=== PATIENT | male | born 2000 | race Caucasian/White ===

== ENCOUNTER 2018-07-27 11:56 | Emergency (ER) | payer BC ==
--- NOTE | 2018-07-27 13:13 | UC ---
Throat Pain/Nasal Duke HPI - HPI Summary HPI Summary: Patient c/o sore throat, body aches, chills fever, was exposed to strep, is wearing holter monitor due to new Dx of afib related to use of energy drinks and workout enhancement meds. - History of Current Complaint Stated Complaint: SORE THROAT, HEADACHE, STREP EXPOSURE Time Seen by Provider: 07/27/18 13:11 Hx Obtained From: Patient Onset/Duration: Sudden Onset, Lasting Days Severity: Moderate Associated Signs & Symptoms: Positive: Dysphagia, Sinus Discomfort - Allergies/Home Medications Allergies/Adverse Reactions: Allergies Allergy/AdvReac Type Severity Reaction Status Date / Time No Known Allergies Allergy Verified 07/27/18 13:05 PMH/Surg Hx/FS Hx/Imm Hx Previously Healthy: Yes - Family History Known Family History: Positive: Cardiac Disease Review of Systems All Other Systems Reviewed And Are Negative: Yes Constitutional: Positive: Fever, Chills, Fatigue Skin: Positive: Negative Eyes: Positive: Negative ENT: Positive: Sore Throat, Ear Ache, Nasal Discharge Respiratory: Positive: Shortness Of Breath, Cough Cardiovascular: Positive: Negative Gastrointestinal: Positive: Negative Genitourinary: Positive: Negative Motor: Positive: Negative Neurovascular: Positive: Negative Musculoskeletal: Positive: Negative Neurological: Positive: Negative Psychological: Positive: Negative Is Patient Immunocompromised?: No Physical Exam Triage Information Reviewed: Yes Appearance: Well-Nourished, Ill-Appearing, Pain Distress Vital Signs Reviewed: Yes Eye Exam: Normal ENT: Positive: Pharyngeal erythema, TM bulging, Sinus tenderness Dental Exam: Normal Neck exam: Normal Neck: Positive: Supple, Nontender, No Lymphadenopathy Respiratory Exam: Normal Respiratory: Positive: Chest non-tender, Lungs clear, Normal breath sounds Cardiovascular: Positive: No Murmur, Pulses Normal, Other: - heart rate irreg Abdominal Exam: Normal Abdomen Description: Positive: Nontender, No Organomegaly Bowel Sounds: Positive: Present Musculoskeletal Exam: Normal Neurological Exam: Normal Psychological Exam: Normal Skin Exam: Normal Throat Pain/Nasal Course/Dx - Course Course Of Treatment: hx obtained, exam performed, meds reviewed, rapid strep and flu obtained, treated for strep phaynigitis based on clinical presentation and exposure - Differential Dx/Diagnosis Differential Diagnosis/HQI/PQRI: Influenza, Laryngitis, Otitis Media, Pharyngitis, Sinusitis, URI Provider Diagnosis: Pharyngitis Discharge - Sign-Out/Discharge Documenting (check all that apply): Patient Departure All imaging exams completed and their final reports reviewed: No Studies - Discharge Plan Condition: Stable Disposition: HOME Prescriptions: Amoxicillin PO (*) [Amoxicillin 500 MG CAP*] 500 mg PO Q12H #20 cap Patient Education Materials: Pharyngitis (ED) Referrals: No Primary Care Phys,NOPCP [Primary Care Provider] - Additional Instructions: your flu swab was negative based on your exposure and presentation I am going to treat you for strep. take the medication as prescribed, follow up as necessary - Billing Disposition and Condition Condition: STABLE Disposition: Home - Attestation Statements Provider Attestation: I was available for consult. This patient was seen by the JAYRO. The patient was not presented to, seen by, or examined by me. EK
[2018-07-27 13:16] VITALS: BP 113/67
[2018-07-27] MEDS ORDERED: Ibuprofen TAB* 600 MG PO ONE (13:20)
[2018-07-29 08:42] LABS: Influenza A Molecular NEGATIVE (Negative); Influenza B Molecular NEGATIVE (Negative)
== END 2018-07-27 14:08 | disposition home or self-care (01) ==
LOC: UCCORT 11:56
DX: J02.9 Acute pharyngitis, unspecified (principal)
CPT/HCPCS: 87651; 99202; A9270-GY; G0463

== ENCOUNTER 2018-12-23 12:15 | Emergency (ER) | payer BC ==
[2018-12-23 12:37] VITALS: BP 121/59
--- NOTE | 2018-12-23 12:55 | UC ---
Cardiac HPI - HPI Summary HPI Summary: 18yo male c/o left sided chest pain. Sudden onset yesterday at rest. Worse with activity. Not worse with palpation or deep breaths. 7/10 at worst. No pain at rest. No radiation. Hx spontaneous pneumothorax in past. No fever. No SOB at rest. No nausea. No URI Sx. - History of Current Complaint Chief Complaint: UCChestPain Stated Complaint: LEFT SIDE/BACK PAIN Time Seen by Provider: 12/23/18 12:31 Pain Intensity: 0 - Allergy/Home Medications Allergies/Adverse Reactions: Allergies Allergy/AdvReac Type Severity Reaction Status Date / Time No Known Allergies Allergy Verified 12/23/18 12:38 Home Medications: Home Medications NK [No Home Medications Reported] 12/23/18 [History Confirmed 12/23/18] PMH/Surg Hx/FS Hx/Imm Hx Previously Healthy: Yes Cardiovascular History: Atrial Fibrillation - 06/11 had intermittent afib and was symptomatic. No Rx for the afib. Other Cardiovascular History: Spontaneous pneumothorax on left in past - Surgical History Surgical History: Yes Surgery Procedure, Year, and Place: CHEST TUBE - Family History Known Family History: Positive: Cardiac Disease - Social History Alcohol Use: Occasionally Substance Use Type: None Smoking Status (MU): Never Smoked Tobacco Review of Systems All Other Systems Reviewed And Are Negative: Yes Constitutional: Positive: Negative Skin: Positive: Negative Eyes: Positive: Negative ENT: Positive: Negative Respiratory: Positive: Other - see hpi Cardiovascular: Positive: Chest Pain, Other - see hpi. Negative: Palpitations Gastrointestinal: Positive: Negative Motor: Positive: Negative Neurovascular: Positive: Negative Musculoskeletal: Positive: Negative Neurological: Positive: Negative Psychological: Positive: Negative Is Patient Immunocompromised?: No Physical Exam Triage Information Reviewed: Yes Appearance: Well-Appearing, No Pain Distress, Well-Nourished Vital Signs: Initial Vital Signs Temp 98.5 F 12/23/18 12:30 Pulse 55 12/23/18 12:30 Resp 18 12/23/18 12:30 BP 121/59 12/23/18 12:30 Pulse Ox 100 12/23/18 12:30 Vital Signs Reviewed: Yes Eye Exam: Normal Eyes: Positive: Conjunctiva Clear Neck: Positive: Supple Respiratory: Positive: Lungs clear, Normal breath sounds, No respiratory distress Cardiovascular: Positive: RRR Abdomen Description: Positive: Nontender, Soft Bowel Sounds: Positive: Present Musculoskeletal: Positive: Strength Intact, ROM Intact Neurological: Positive: Alert, Muscle Tone Normal Psychological: Positive: Age Appropriate Behavior Skin Exam: Normal Diagnostics - EKG Cardiac Rate: Bradycardia - at 1236 Cardiac Rhythm: Sinus: Normal - 47bpm Ectopy: None Summary of EKG Findings: ST elevation, probable normal early repol pattern - Assessment/Plan Course Of Treatment: Nurse Midwife: Shefali Lennon S, ([id number]) Command And Control Specialist: JAIDA (PHILOMENAANCE) Report Date: 12/23/2018 12:49:00 Report Status: Final Start of Report Content Patient Name: JOSSELIN LORENZO Medical Record#: [id number] Ordering Physician: Doroteo Barajas MD Acct.#: [id number] : Age: 18 Sex: M Location: [facility] Exam Date: 12/23/18 124 ADM Status: REG ER Order Information: CHEST PA LAT 2 VWS Accession Number: [id number] CPT: 00151 Indication: Left chest pain. 2 views of the chest including dual energy PA views demonstrates no mediastinal shift. Heart is of normal size and configuration. Lung tobin show no pleural fluid, pneumonia or pneumothorax. IMPRESSION: No active cardiopulmonary disease is noted. <Electronically signed by Shefali Lennon MD in OV> 12/23/18 [id number] Dictated By: Shefali Lennon MD Dictated Date/ Time: 12/23/18 135 Transcribed Date/Time: 12/23/18 135 Copy to: CC:No Primary Care Phys,NOPCP ; Doroteo Barajas MD Imaging - [facility] Imaging - [facility] Imaging - [facility] [address] [address] ph [phone]) ph ([phone]) ph ([phone]) End of Report Content ==== CXR, EKG and rapid strep results discussed with the patient. Discussed DDx of Sx with the patient to include pericarditis and recommended further evaluation of chest pain. - Clinical Impression Provider Diagnosis: Left-sided chest pain Discharge ED - Sign-Out/Discharge Documenting (check all that apply): Patient Departure All imaging exams completed and their final reports reviewed: Yes - Discharge Plan Condition: Stable Disposition: HOME-RECOMMEND TO ED Patient Education Materials: Chest Pain (ED) Referrals: [facility] [place] PHYSICIAN REFERRAL [Outside] Additional Instructions: GO DIRECTLY TO THE EMERGENCY DEPARTMENT FOR FURTHER EVALUATION OF YOUR CHEST PAIN. - Billing Disposition and Condition Condition: STABLE Disposition: Home-Recommend to ED
[2018-12-23] MEDS ORDERED: Ibuprofen TAB* 600 MG PO ONE (14:30)
== END 2018-12-23 14:40 | disposition home health service (06) ==
LOC: UCCORT 12:15
DX: R07.9 Chest pain, unspecified (principal)
CPT/HCPCS: 71046; 87651; 93005; 99212; A9270-GY; G0463